=== PATIENT | male | born 1995 | race Caucasian/White ===

== ENCOUNTER 2016-10-04 17:05 | Emergency (ER) | payer BC, OTHER ==
[~2016-10-04] VITALS: Ht 185.4 cm; Wt 90.7 kg
--- NOTE | 2016-10-04 17:13 | NUR ---
ARRIVAL: PT AMBULATED TO ED 8, ASSESSMENT CHARTED, PLACED ON CONTINUIOUS 02 SAT, BP, AND OBSTETRICS GYN. DR. SOLER AT BEDSIDE.
[2016-10-04] MEDS ORDERED: NITROSTAT SL STA (17:19)
[2016-10-04] MEDS ORDERED: ASPIRIN PO STA (17:19)
--- NOTE | 2016-10-04 17:19 | ER.PDOC ---
General Chief Complaint: Chest Pain-Non Cardiac Nature Stated Complaint: DIFF BREATHING Time seen by MD: 17:00 Source: patient Exam Limitations: clinical condition History of Present Illness Initial Comments CP started two days ago getting worse and now is located on the left anterior chest, painful to palpation and deep breath Timing/Duration: 24 hours (Two days) Severity/Quality: severe, sharp, stabbing Radiation: no radiation Activities at Onset: none Prior CP/Workup: No Prior Chest Pain Nitro Today/Relief: No Nitro Taken Today Aspirin Today: No Aspirin Today Associated Symptoms: denies symptoms Allergies: Coded Allergies: No Known Allergies (Unverified , 10/04/16) Past Medical History Medical History: no pertinent history Surgical History: other Social History Smoking: non-smoker Alcohol Use: occasionally Drug Use: none Constitutional: see HPI EENTM: see HPI Respiratory: see HPI Cardiovascular: see HPI Gastrointestinal: see HPI Genitourinary: see HPI Musculoskeletal: see HPI Skin: see HPI Psychiatric/Neurological: see HPI Endocrine: see HPI Hematologic/Lymphatic: see HPI Physical Exam General Appearance: No Apparent Distress, WD/WN HEENT: PERRL/EOMI, Normal ENT Inspection, TMs Normal, Pharynx Normal Neck: Non-Tender, Full Range of Motion, Supple, Normal Inspection Respiratory: chest non-tender, lungs clear, normal breath sounds, no respiratory distress, no accessory muscle use Cardiovascular: Normal Peripheral Pulses, Regular Rate, Rhythm, No Edema, No Gallop, No JVD, No Murmur Gastrointestinal: Normal Bowel Sounds, No Organomegaly, No Pulsatile Mass, Non Tender, Soft Extremities: Normal Range of Motion, Non-Tender, Normal Inspection, No Pedal Edema, No Calf Tenderness, Normal Capillary Refill Neurologic/Psychiatric: joint setter II-XII NML as Tested, No Motor/Sensory Deficits, Alert, Normal Mood/Affect, Oriented x 3 Skin: Normal Color, Warm/Dry Course Blood Pressure Systolic: 147 Blood Pressure Diastolic: 84 Blood Pressure Mean: 105 Departure Time of Disposition: 18:12 Disposition: 01 HOME, SELF-CARE Impression: Primary Impression: Chest pain Additional Impression: Tenderness of chest wall Condition: Stable Patient Instructions: Chest Wall Pain Problem Qualifiers MARLON SOLER MD Oct 04, 2016 17:19
[2016-10-04 17:24] LABS: BASOPHIL % 0.1 % (0.0-0.2); EOSINOPHIL # 0.1 10^3/uL (0.0-0.2); EOSINOPHIL % 1.7 % (0.0-5.0); HEMOGLOBIN 15.6 g/dL (13.9-16.3); LYMPHOCYTES # 1.9 10^3/uL (1.0-4.8); LYMPHOCYTES % 24.5 % (24.0-44.0); MEAN CELL HGB 28.3 pg (26-34); MEAN CELL HGB CONCENTRATION 32.5 g/dL (33-37); MEAN PLATELET VOLUME 9.8 fL (7.8-11.0); MONOCYTES # 0.9 10^3/uL (0.3-0.8); MONOCYTES % 10.9 % (5.0-12.0); NEUTROPHIL # 4.9 10^3/uL (1.8-7.7); NEUTROPHILS % 62.7 % (41.0-85.0); RED CELL DISTRIBUTION WIDTH 13.1 % (11.5-14.5); WHITE BLOOD CELL 7.8 10^3/uL (4.5-11.0)
[2016-10-04] MEDS ORDERED: ASPIRIN ONE (17:26)
[2016-10-04] MEDS ORDERED: NITROSTAT SL ONE (17:26)
[2016-10-04] MEDS ORDERED: MORPHINE SULFATE ONE (17:28)
[2016-10-04] MEDS ORDERED: MORPHINE SULFATE IV PRN (17:30)
--- NOTE | 2016-10-04 17:32 | DIREP ---
PROCEDURE:CHEST 1 VIEW COMPARISON:None. INDICATIONS:CP FINDINGS: LUNGS/PLEURA:No significant pulmonary parenchymal abnormalities. No effusions. Shallow expansion of the lungs. No pneumonia, heart failure or effusions are seen. No pneumothorax, pneumomediastinum, aortic aneurysm or mediastinal widening is seen. VASCULATURE:Normal. Unremarkable pulmonary vasculature. CARDIAC:Normal. No cardiac silhouette abnormality or cardiomegaly. MEDIASTINUM:Normal. No visible mass or adenopathy. BONES:Normal. No fracture or visible bony lesion. OTHER:Negative. CONCLUSION:No acute disease. Dictated by: Estuardo Rivera MD on 10/04/2016 at 05:30 PM
[2016-10-04] MEDS ORDERED: TORADOL IV STA (17:53)
[2016-10-04] MEDS ORDERED: TORADOL ONE (17:55)
[2016-10-04 18:08] LABS: ALANINE AMINOTRANSFERASE(ML) 36 U/L (12-78); ALKALINE PHOSPHATASE 135 U/L (50-136); ASPARTATE AMINO TRANSFERASE 21 U/L (0-35); CALCIUM 8.8 mg/dL (8.4-10.5); CARBON DIOXIDE 26.2 mmol/L (20.0-32); GLUCOSE 115 mg/dL (70-110)
== END 2016-10-04 18:22 | disposition home or self-care (01) ==
LOC: ER 17:05
DX: R07.9 Chest pain, unspecified (principal)
CPT/HCPCS: 36415; 71010; 80053; 82550; 83880; 84484; 85025; 85610; 85730; 93005; 96374; 96375; 99285; J1885; J2270; 71045